=== PATIENT | male | born 1985 | race Caucasian/White ===

== ENCOUNTER 2017-04-07 16:51 | Inpatient (IN) | payer SELFPAY ==
[~2017-04-07] VITALS: Ht 180.3 cm; Wt 79.4 kg
[2017-04-07 18:15] VITALS: BP 136/90
[2017-04-07] MEDS ORDERED: ONDANSETRON PF 4 MG/2 ML VIAL. IV PRN (18:30)
[2017-04-07] MEDS ORDERED: MORPHINE SULFATE 4 MG/ML DISP.SYRIN. IV PRN ×2 (18:30→20:00)
[2017-04-07 19:54] VITALS: BP 143/88
[2017-04-07] MEDS ORDERED: VANCOMYCIN 1 GM in IV NORMAL SALINE 250ML 250 ML IV SCH (20:00)
[2017-04-07] MEDS ORDERED: oxyCODONE/APAP 10/325 1 TAB TABLET PO PRN (20:00)
[2017-04-07] MEDS: VANCOMYCIN PER PHARMACY MC PRN (20:31)
[2017-04-07] MEDS: ENOXAPARIN 40 MG/0.4 ML SYRINGE. SQ SCH (20:38)
[2017-04-07] MEDS: FAMOTIDINE 20 MG TABLET. PO SCH (20:38)
--- NOTE | 2017-04-07 22:07 | HP ---
ADMIT DATE: 04/07/2017 CHIEF COMPLAINT: Foot cellulitis. HISTORY OF PRESENT ILLNESS: The patient is a 31-year-old gentleman without any past medical history who presented to the Emergency Room 1 week after stepping into a nail. He relates that this happened at work place where he did not see a board with a nail. The nail punctured through the foot. He immediately cleaned the area and applied a triple ointment. He did not notice any erythema or swelling until yesterday. Foot is now significantly swollen and painful. He is unable to bear weight on the ball of his left foot. He denies any fevers, any chills, denies any other symptoms. He is now admitted for cellulitis, question osteomyelitis. PAST MEDICAL HISTORY: None. FAMILY HISTORY: None. SOCIAL HISTORY: Lives with his brother. Smokes a pack of cigarettes a day, smokes pot as well as meth. No IV drug use. No alcohol. ALLERGIES: No known drug allergies. MEDICATIONS: No home medications. REVIEW OF SYSTEMS: Positive as per HPI. Pain currently rated as 7/10 while lying in bed with foot propped up. Rest of organ system review is negative. PHYSICAL EXAMINATION: VITAL SIGNS: From today show a blood pressure of 136/90, heart rate at 80, respiratory rate at 18. He is afebrile. GENERAL: This is a well-nourished 31-year-old gentleman, alert and oriented, in no acute distress. HEENT: Shows no scleral icterus. NECK: Supple. Oral mucosa is pink and moist. Dentition is poor. LUNGS: Clear. HEART: Regular rate and rhythm. ABDOMEN: Has positive bowel sounds, soft, nontender. EXTREMITIES: Show erythema and edema in the dorsum of the left foot. A minuscule puncture wound is seen on the sole of his foot between third and fourth toe. No erythema or abnormalities noted there. LABORATORY DATA: Not obtained in the Emergency Room. ASSESSMENT AND PLAN: The patient is a 31-year-old gentleman with at least foot cellulitis after stepping into a sierra nail. We will admit him, start broad-spectrum antibiotics for now. Dr. Yoder from Infectious Disease as well as Dr. Rashid from Ortho have been consulted by the Emergency Room physician. We will obtain x-rays and if need be MRI of the foot as well to ascertain no osteomyelitis is present. We will obtain labs and monitor as needed. For his pain, he will have Percocets available as well as morphine for severe pain. We will start nicotine patch for his pack a day habit of cigarettes. Prophylaxis will be obtained with H2 blockers as well as Lovenox. SIVA MARI MD DR: RAJWINDER/nts JOB#: [id number] / [id number] PRATIMA
[2017-04-07] MEDS: CEFEPIME HCL 1 GM in IV NORMAL SALINE 50ML 50 ML IV SCH (22:16)
[2017-04-07 22:55] VITALS: BP 138/83
--- NOTE | 2017-04-07 23:45 | ACF ---
Admission Forms Criteria CELLULITIS Clinical Indications for Admission to Inpatient Care (Place 'X' for any and all applicable criteria): Admission is indicated for ANY ONE of the following(1)(2)(3)(4)(5): [ ]I. Limb-threatening infection [ ]II. High-risk comorbid condition as indicated by ANY ONE of the following: [ ]a) Uncontrolled diabetes (eg, HbA1c greater than 10% (0.1)) [ ]b) Cirrhosis [ ]c) Neutropenia [ ]d) Asplenia [ ]e) Immunosuppression [ ]f) Symptomatic heart failure [ ]III. Failure of outpatient therapy as indicated by ALL of the following: [ ]a) Progression or no improvement after adequate trial (minimum of 48 hours, with longer period for stable lower extremity infection) [ ]b) Adequate antibiotic regimen as indicated by use of ANY ONE of the following: [ ]i) First-generation cephalosporin (e.g., cephalexin) [ ]ii) Antistaphylococcal penicillin (e.g., dicloxacillin) [ ]iii) Penicillin-allergic patient regimen (clindamycin, extended-spectrum fluoroquinolone, or doxycycline) [ ]iv) Resistant organism (eg, methicillin-resistant Staphylococcus aureus) regimen (6) [ ]c) Outpatient intravenous therapy regimen is not appropriate due to ANY ONE of the following. (7)(8)(9)(10): [ ]i) It was tried and was not successful (eg, progression of infection). [ ]ii) It is not available or cannot be arranged in a clinically appropriate time frame (e.g., the next day). [ ]iii) Clinical presentation (eg, acuity of infection, rapidity of progression, confirmed or suspected bacteremia) is judged to require ALL of the following: [ ]1) Immediate initiation of intravenous therapy ( eg, cannot wait for next day) [ ]2) Intensity of patient monitoring and observation (eg, vital sign measurement, checks for infection progression) that cannot be provided at other than inpatient level of care [ ]IV. Mental status changes [ ]V. Bacteremia [ ]. Hemodynamic instability [ ]VII. Suspected necrotizing soft tissue infection (e.g., gas in tissue)(11)( 12) [ ]VIII. Orbital infection (13)(14) [ ]IX. Associated surgical procedure (e.g., abscess drainage, debridement) not amenable to outpatient, emergency department, or observation care [ ]X. Cutaneous gangrene [ ]XI. High fever (temperature greater than 39.5 degrees C (103.1 degrees F) (oral)) not responsive to outpatient, emergency department, or observation care therapy [X]XIII. Inpatient admission required rather than observation care (Also use Cellulitis: Observation Care as appropriate) because of ANY ONE of the following : [ ]a) Periorbital or perineal infection that is severe or worsening [ ]b) Severe pain requiring acute inpatient management [ ]c) IV fluid to replace significant ongoing (e.g., for over 24 hours) losses (greater than 3L/m2 per day) [ ]d) Compartment syndrome monitoring (17) [ ]e) Strict or protective (eg, laminar flow) isolation [ ]f) Urgent debridement or skin grafting [ ]g) Bone or joint debridement [ ]h) Immediate inpatient surgery [X]i) Other condition, treatment or monitoring requiring inpatient admission Extended stay beyond goal length of stay may be needed for (1)(18): [ ]a) Necrotizing soft tissue infection or fasciitis [ ]b) Gram-negative infection [ ]c) Methicillin-resistant Staphylococcal aureus (MRSA) infection [ ]d) Peripheral venous insufficiency with cellulitis [ ]e) Extensive edema [ ]f) Sepsis or continued Hemodynamic instability [ ]g) Continued high fever or mental status change [ ]h) Bacteremia [ ]i) Active serious comorbid conditions ( eg, heart failure, renal insufficiency) The original [employer] content created by [employer] has been revised. The portions of the content which have been revised are identified through the use of italic text or in bold, and [facility] has neither reviewed nor approved the modified material. All other unmodified content is copyright [facility] Please see references footnoted in the original [facility] [facility] edition 2016 Admission Criteria Met?: Yes DANYA ROLON Apr 07, 2017 23:44
[2017-04-07] MEDS: VANCOMYCIN 1.25 GM in IV NORMAL SALINE 250ML 250 ML IV SCH (23:58)
[2017-04-08 03:44] LABS: BASO # 0.1 x10^3/uL (0.0-0.2); BASO % 1 % (0-3); EOS % 4 % (0-3); HEMATOCRIT 39.6 % (39.0-53.0); HEMOGLOBIN 13.7 g/dL (13.0-17.5); LYMPH % 18 % (24-48); MEAN CORPUSCULAR HEMOGLOBIN 30 pg (25-35); MEAN CORPUSCULAR HGB CONC 35 g/dL (31-37); MEAN CORPUSCULAR VOLUME 87 fL (79-100); MONO % 9 % (0-9); NEUT % 68 % (31-73); PLATELET COUNT 325 x10^3/uL (140-400); RED BLOOD COUNT 4.57 x10^6/uL (4.30-5.70); RED CELL DISTRIBUTION WIDTH 12.8 % (11.5-14.5); WHITE BLOOD COUNT 10.9 x10^3/uL (4.0-11.0)
[2017-04-08 03:58] LABS: ALBUMIN 2.7 g/dL (3.4-5.0); ALBUMIN/GLOBULIN RATIO 0.8 (1.0-1.7); CALCIUM 8.4 mg/dL (8.5-10.1); CREATININE 1.2 mg/dL (0.7-1.3); GFR 69.7; POTASSIUM 3.8 mmol/L (3.5-5.1); TOTAL BILIRUBIN 0.5 mg/dL (0.2-1.0); TOTAL PROTEIN 5.9 g/dL (6.4-8.2)
[2017-04-08] MEDS: CEFEPIME HCL 1 GM in IV NORMAL SALINE 50ML 50 ML IV SCH ×3 (06:03→21:51)
--- NOTE | 2017-04-08 07:37 | RAD ---
Left foot, 2 views, 04/07/2017: History: Stepped on nail, cellulitis No fracture or dislocation is identified. No destructive bony lesion is seen. There is diffuse soft tissue swelling. No radiopaque foreign body is evident in the soft tissues. IMPRESSION: No acute bony abnormality is detected.
[2017-04-08] MEDS: VANCOMYCIN 1.25 GM in IV NORMAL SALINE 250ML 250 ML IV SCH ×3 (07:43→23:32)
[2017-04-08 07:56] VITALS: BP 132/85
--- NOTE | 2017-04-08 09:19 | RAD ---
Examination: MRI of the left forefoot without contrast HISTORY: History of a puncture wound to the left foot wound under the ball of the foot directly of the third digit, pain, redness, swelling COMPARISON: None available Technique: Multiplanar multisequence MR imaging of the left forefoot were performed without contrast FINDINGS: Examination limited due to motion artifact. The alignment of the metatarsophalangeal, phalangeal joints grossly appears unremarkable. Mild degenerative disease identified at the first metatarsophalangeal joint with tiny subchondral cystic changes. Small subchondral cystic change identified at the medial base of the third metatarsal likely degeneration. No evidence of cortical disruption identified with low T1 signal to suggest osteomyelitis. There is small amount of fluid identified in the third and fourth metatarsophalangeal joint. There is diffuse T2 signal identified in the soft tissue of the forefoot particularly about the third and fourth metatarsals and the toes in its dorsal and plantar aspect. There is increased T2 signal in the plantar muscles of the forefoot. Lisfranc ligament appears intact. Impression : 1. No MRI evidence of osteomyelitis. 2. Diffuse T2 signal identified in the soft tissue and subcutaneous region of the forefoot and the plantar muscles of the forefoot likely edema or soft tissue infection/myositis. 3. Minimal amount of joint effusion in third and fourth metatarsophalangeal joints probably reactive and less likely septic arthritis as there is no evidence of cortical disruption. Electronically signed by: Andre Smith MD (04/08/2017 9:16 AM)
[2017-04-08] MEDS: NICOTINE 21MG PATCH. TD SCH (09:43)
[2017-04-08 10:52] VITALS: BP 129/85
--- NOTE | 2017-04-08 14:26 | PDOC ---
PROGRESS NOTES Chief Complaint Chief Complaint Nail into foot History of Present Illness History of Present Illness Seen and examined VSS Consulted ID Vitals Vitals Vital Signs Date Time Temp Pulse Resp B/P (MAP) Pulse Ox O2 Delivery O2 Flow Rate FiO2 04/08/17 10:52 97.9 93 18 129/85 (100) 98 Room Air 97.9 Physical Exam General: Alert, Oriented X3, Cooperative Heart: Regular rate, Normal S1, Normal S2 Lungs: Clear Abdomen: Normal bowel sounds, Soft Extremities: No clubbing, No cyanosis, Other (+cellulitis of L foot) Skin: No breakdown Labs LABS Laboratory Tests Test 04/08/17 03:25 White Blood Count 10.9 x10^3/uL (4.0-11.0) Red Blood Count 4.57 x10^6/uL (4.30-5.70) Hemoglobin 13.7 g/dL (13.0-17.5) Hematocrit 39.6 % (39.0-53.0) Mean Corpuscular Volume 87 fL (79-100) Mean Corpuscular Hemoglobin 30 pg (25-35) Mean Corpuscular Hemoglobin Concent 35 g/dL (31-37) Red Cell Distribution Width 12.8 % (11.5-14.5) Platelet Count 325 x10^3/uL (140-400) Neutrophils (%) (Auto) 68 % (31-73) Lymphocytes (%) (Auto) 18 % (24-48) Monocytes (%) (Auto) 9 % (0-9) Eosinophils (%) (Auto) 4 % (0-3) Basophils (%) (Auto) 1 % (0-3) Neutrophils # (Auto) 7.4 x10^3uL (1.8-7.7) Lymphocytes # (Auto) 2.0 x10^3/uL (1.0-4.8) Monocytes # (Auto) 1.0 x10^3/uL (0.0-1.1) Eosinophils # (Auto) 0.5 x10^3/uL (0.0-0.7) Basophils # (Auto) 0.1 x10^3/uL (0.0-0.2) Sodium Level 141 mmol/L (136-145) Potassium Level 3.8 mmol/L (3.5-5.1) Chloride Level 107 mmol/L (98-107) Carbon Dioxide Level 29 mmol/L (21-32) Anion Gap 5 (6-14) Blood Urea Nitrogen 15 mg/dL (8-26) Creatinine 1.2 mg/dL (0.7-1.3) Estimated GFR (Cockcroft-Gault) 69.7 BUN/Creatinine Ratio 13 (6-20) Glucose Level 106 mg/dL (70-99) Calcium Level 8.4 mg/dL (8.5-10.1) Total Bilirubin 0.5 mg/dL (0.2-1.0) Aspartate Amino Transf (AST/SGOT) 11 U/L (15-37) Alanine Aminotransferase (ALT/SGPT) 13 U/L (16-63) Alkaline Phosphatase 111 U/L (46-116) Total Protein 5.9 g/dL (6.4-8.2) Albumin 2.7 g/dL (3.4-5.0) Albumin/Globulin Ratio 0.8 (1.0-1.7) Review of Systems Review of Systems co pain co weaknes Assessment and Plan Assessmemt and Plan Nail into foot Plan Consult ID Wound care Labs Home meds Narcotics IV antibx Problems: Comment Review of Relevant I have reviewed the following items jay (where applicable) has been applied. Labs Laboratory Tests Test 04/08/17 03:25 White Blood Count 10.9 x10^3/uL (4.0-11.0) Red Blood Count 4.57 x10^6/uL (4.30-5.70) Hemoglobin 13.7 g/dL (13.0-17.5) Hematocrit 39.6 % (39.0-53.0) Mean Corpuscular Volume 87 fL (79-100) Mean Corpuscular Hemoglobin 30 pg (25-35) Mean Corpuscular Hemoglobin Concent 35 g/dL (31-37) Red Cell Distribution Width 12.8 % (11.5-14.5) Platelet Count 325 x10^3/uL (140-400) Neutrophils (%) (Auto) 68 % (31-73) Lymphocytes (%) (Auto) 18 % (24-48) Monocytes (%) (Auto) 9 % (0-9) Eosinophils (%) (Auto) 4 % (0-3) Basophils (%) (Auto) 1 % (0-3) Neutrophils # (Auto) 7.4 x10^3uL (1.8-7.7) Lymphocytes # (Auto) 2.0 x10^3/uL (1.0-4.8) Monocytes # (Auto) 1.0 x10^3/uL (0.0-1.1) Eosinophils # (Auto) 0.5 x10^3/uL (0.0-0.7) Basophils # (Auto) 0.1 x10^3/uL (0.0-0.2) Sodium Level 141 mmol/L (136-145) Potassium Level 3.8 mmol/L (3.5-5.1) Chloride Level 107 mmol/L (98-107) Carbon Dioxide Level 29 mmol/L (21-32) Anion Gap 5 (6-14) Blood Urea Nitrogen 15 mg/dL (8-26) Creatinine 1.2 mg/dL (0.7-1.3) Estimated GFR (Cockcroft-Gault) 69.7 BUN/Creatinine Ratio 13 (6-20) Glucose Level 106 mg/dL (70-99) Calcium Level 8.4 mg/dL (8.5-10.1) Total Bilirubin 0.5 mg/dL (0.2-1.0) Aspartate Amino Transf (AST/SGOT) 11 U/L (15-37) Alanine Aminotransferase (ALT/SGPT) 13 U/L (16-63) Alkaline Phosphatase 111 U/L (46-116) Total Protein 5.9 g/dL (6.4-8.2) Albumin 2.7 g/dL (3.4-5.0) Albumin/Globulin Ratio 0.8 (1.0-1.7) Laboratory Tests Test 04/08/17 03:25 White Blood Count 10.9 x10^3/uL (4.0-11.0) Red Blood Count 4.57 x10^6/uL (4.30-5.70) Hemoglobin 13.7 g/dL (13.0-17.5) Hematocrit 39.6 % (39.0-53.0) Mean Corpuscular Volume 87 fL (79-100) Mean Corpuscular Hemoglobin 30 pg (25-35) Mean Corpuscular Hemoglobin Concent 35 g/dL (31-37) Red Cell Distribution Width 12.8 % (11.5-14.5) Platelet Count 325 x10^3/uL (140-400) Neutrophils (%) (Auto) 68 % (31-73) Lymphocytes (%) (Auto) 18 % (24-48) Monocytes (%) (Auto) 9 % (0-9) Eosinophils (%) (Auto) 4 % (0-3) Basophils (%) (Auto) 1 % (0-3) Neutrophils # (Auto) 7.4 x10^3uL (1.8-7.7) Lymphocytes # (Auto) 2.0 x10^3/uL (1.0-4.8) Monocytes # (Auto) 1.0 x10^3/uL (0.0-1.1) Eosinophils # (Auto) 0.5 x10^3/uL (0.0-0.7) Basophils # (Auto) 0.1 x10^3/uL (0.0-0.2) Sodium Level 141 mmol/L (136-145) Potassium Level 3.8 mmol/L (3.5-5.1) Chloride Level 107 mmol/L (98-107) Carbon Dioxide Level 29 mmol/L (21-32) Anion Gap 5 (6-14) Blood Urea Nitrogen 15 mg/dL (8-26) Creatinine 1.2 mg/dL (0.7-1.3) Estimated GFR (Cockcroft-Gault) 69.7 BUN/Creatinine Ratio 13 (6-20) Glucose Level 106 mg/dL (70-99) Calcium Level 8.4 mg/dL (8.5-10.1) Total Bilirubin 0.5 mg/dL (0.2-1.0) Aspartate Amino Transf (AST/SGOT) 11 U/L (15-37) Alanine Aminotransferase (ALT/SGPT) 13 U/L (16-63) Alkaline Phosphatase 111 U/L (46-116) Total Protein 5.9 g/dL (6.4-8.2) Albumin 2.7 g/dL (3.4-5.0) Albumin/Globulin Ratio 0.8 (1.0-1.7) Medications Current Medications Morphine Sulfate 4 mg PRN Q4HRS PRN IV PAIN; Start 04/07/17 at 18:30; Stop at 19:51; Status DC Ondansetron HCl (Zofran) 4 mg PRN Q8HRS PRN IV NAUSEA/VOMITING; Start 04/07/17 at 18:30 Morphine Sulfate 2 mg PRN Q4HRS PRN IV severe pain; Start 04/07/17 at 20:00 Oxycodone/ Acetaminophen (Percocet 10/325) 1 tab PRN Q4HRS PRN PO pain -1st choice Last administered on 04/07/17 20:37; Start 04/07/17 at 20:00 Nicotine (Nicoderm Cq 21mg) 1 patch DAILY TD Last administered on 04/08/17 09: 43; Start 04/08/17 at 09:00 Cefepime HCl 1 gm/ Sodium Chloride 50 ml @ 100 mls/hr Q8HRS IV Last administered on 04/08/17 06:03; Start 04/07/17 at 22:00 Vancomycin HCl 1 gm/Sodium Chloride 250 ml @ 250 mls/hr Q12H IV ; Start at 20:00; Status UNV Famotidine (Pepcid) 20 mg QHS PO ; Start 04/07/17 at 21:00 Enoxaparin Sodium (Lovenox 40mg Syringe) 40 mg Q24H SQ Last administered on 20:38; Start 04/07/17 at 21:00 Vancomycin HCl 1.25 gm/Sodium Chloride 250 ml @ 167 mls/hr Q8H IV Last administered on 04/08/17 07:43; Start 04/08/17 at 00:00 Vancomycin HCl 1 each 1X ONCE MC ; Start 04/08/17 at 15:30; Stop 04/08/17 at 15 :31 Vancomycin HCl (Vanco Per Pharmacy) 1 each PRN DAILY PRN MC SEE COMMENTS Last administered on 04/07/17 20:31; Start 04/07/17 at 20:45 Active Scripts Active Reported No Known Medications Prior To Admisstion (Info) Each 1 Each MC Vitals/I & O Vital Sign - Last 24 Hours 04/07/17 04/07/17 04/07/17 04/07/17 18:15 18:15 19:54 20:00 Temp 98.2 98.2 98.1 98.2 98.2 98.1 Pulse 80 80 105 Resp 18 18 18 B/P (MAP) 136/90 (105) 136/90 (105) 143/88 (106) Pulse Ox 99 99 98 O2 Delivery Room Air Room Air Room Air Room Air 04/07/17 04/08/17 04/08/17 22:55 07:56 10:52 Temp 98.7 97.9 97.9 98.7 97.9 97.9 Pulse 97 93 93 Resp 18 18 B/P (MAP) 138/83 (101) 132/85 (101) 129/85 (100) Pulse Ox 97 98 98 O2 Delivery Room Air Room Air Room Air Intake and Output 04/07/17 04/07/17 04/08/17 15:00 23:00 07:00 Intake Total 1000 ml Balance 1000 ml BETO MARTINEZ III DO Apr 08, 2017 14:26
[2017-04-08 14:53] VITALS: BP 127/86
--- NOTE | 2017-04-08 15:35 | PDOC2 ---
CONSULT Date of Consult Date of Consult DATE: 04/08/17 Identification/Chief Complaint Chief Complaint left foot pain and swelling Source Source: Chart review, Patient History of Present Illness Reason for Visit: Mr. Wick is a 31 year old male patient with left foot pain and swelling. He stepped on a nail in a board at work on 04/02/17. He did not seek treatment, but did clean the wound. Later that night his foot became red and painful and continued to get worse over the last week. He states his pain and redness is better today after beginning IV antibiotics last night. He denies any fever, chills, or feelings of being ill. He can't quite remember when his last Tetanus booster was; he thinks 2012. He states he did not receive a booster in the ER. Past Medical History Cardiovascular: No pertinent hx Past Surgical History Past Surgical History: No pertinent history Family History Family History: Diabetes Social History 1 pack per day ALCOHOL: none Drugs: Marijuana, Crystal meth (last smoked 2 days ago, has never injected) Current Medications Current Medications Current Medications Morphine Sulfate 4 mg PRN Q4HRS PRN IV PAIN; Start 04/07/17 at 18:30; Stop at 19:51; Status DC Ondansetron HCl (Zofran) 4 mg PRN Q8HRS PRN IV NAUSEA/VOMITING; Start 04/07/17 at 18:30 Morphine Sulfate 2 mg PRN Q4HRS PRN IV severe pain; Start 04/07/17 at 20:00 Oxycodone/ Acetaminophen (Percocet 10/325) 1 tab PRN Q4HRS PRN PO pain -1st choice Last administered on 04/07/17 20:37; Start 04/07/17 at 20:00 Nicotine (Nicoderm Cq 21mg) 1 patch DAILY TD Last administered on 04/08/17 09: 43; Start 04/08/17 at 09:00 Cefepime HCl 1 gm/ Sodium Chloride 50 ml @ 100 mls/hr Q8HRS IV Last administered on 04/08/17 06:03; Start 04/07/17 at 22:00 Vancomycin HCl 1 gm/Sodium Chloride 250 ml @ 250 mls/hr Q12H IV ; Start at 20:00; Status UNV Famotidine (Pepcid) 20 mg QHS PO ; Start 04/07/17 at 21:00 Enoxaparin Sodium (Lovenox 40mg Syringe) 40 mg Q24H SQ Last administered on 20:38; Start 04/07/17 at 21:00 Vancomycin HCl 1.25 gm/Sodium Chloride 250 ml @ 167 mls/hr Q8H IV Last administered on 04/08/17 07:43; Start 04/08/17 at 00:00 Vancomycin HCl 1 each 1X ONCE MC ; Start 04/08/17 at 15:30; Stop 04/08/17 at 15 :31 Vancomycin HCl (Vanco Per Pharmacy) 1 each PRN DAILY PRN MC SEE COMMENTS Last administered on 04/07/17 20:31; Start 04/07/17 at 20:45 Active Scripts Active Reported No Known Medications Prior To Admisstion (Info) Each 1 Each MC Allergies Allergies: Coded Allergies: No Known Drug Allergies (Unverified , 04/07/17) ROS General: No: Chills, Night Sweats, Fatigue Eyes: Yes Decreased vision HEENT: No: Heacaches, Visual Changes, Sore Throat ALLERGY AND IMMUNOLOGY: No: Nasal Congestion Hematological and Lymphatic: No: Bleeding Problems, Blood Clots Respiratory: No: Cough, Shortness of breath Cardiovascular: No Chest Pain Gastrointestinal: No Nausea, No Vomiting, No Abdominal Pain, No Diarrhea, No Constipation Genitourinary: No Dysuria, No Frequency, No Incontinence Musculoskeletal: Yes Joint Pain Physical Exam General: Alert, Oriented X3, Cooperative, No acute distress HEENT: Atraumatic, EOMI Lungs: Normal air movement Heart: Regular rate Abdomen: Soft Extremities: No clubbing, No cyanosis, Normal pulses, Other (1+ pitting edema over dorsum of foot) Skin: No rashes, No breakdown, Other (small puncture wound on plantar aspect of left foot. No drainage) Neuro: Normal speech, Sensation intact Psych/Mental Status: Mental status NL, Mood NL MUSCULOSKELETAL: Other (Small puncture wound to bottom of foot, as described above. No drainage. No obvious abscess or area of fluctuance. There is erythema covering dorsum of foot up to ankle. Mild tenderness to palpation at base of third toe, over 3rd MCP joint. No tenderness to remaining toes. Normal active dorsiflexion and plantarflexion. Passive range of motion of third toe is mildly painful. Posterior tibialis and dorsalis pedis pulse intact. Light touch sensation intact throughout. Neurovasulcarly intact distally.) Vitals VITALS Vital Signs Date Time Temp Pulse Resp B/P (MAP) Pulse Ox O2 Delivery O2 Flow Rate FiO2 04/08/17 14:53 97.3 98 18 127/86 (100) 100 Room Air 97.3 Labs Labs Laboratory Tests Test 04/08/17 03:25 White Blood Count 10.9 x10^3/uL (4.0-11.0) Red Blood Count 4.57 x10^6/uL (4.30-5.70) Hemoglobin 13.7 g/dL (13.0-17.5) Hematocrit 39.6 % (39.0-53.0) Mean Corpuscular Volume 87 fL (79-100) Mean Corpuscular Hemoglobin 30 pg (25-35) Mean Corpuscular Hemoglobin Concent 35 g/dL (31-37) Red Cell Distribution Width 12.8 % (11.5-14.5) Platelet Count 325 x10^3/uL (140-400) Neutrophils (%) (Auto) 68 % (31-73) Lymphocytes (%) (Auto) 18 % (24-48) Monocytes (%) (Auto) 9 % (0-9) Eosinophils (%) (Auto) 4 % (0-3) Basophils (%) (Auto) 1 % (0-3) Neutrophils # (Auto) 7.4 x10^3uL (1.8-7.7) Lymphocytes # (Auto) 2.0 x10^3/uL (1.0-4.8) Monocytes # (Auto) 1.0 x10^3/uL (0.0-1.1) Eosinophils # (Auto) 0.5 x10^3/uL (0.0-0.7) Basophils # (Auto) 0.1 x10^3/uL (0.0-0.2) Sodium Level 141 mmol/L (136-145) Potassium Level 3.8 mmol/L (3.5-5.1) Chloride Level 107 mmol/L (98-107) Carbon Dioxide Level 29 mmol/L (21-32) Anion Gap 5 (6-14) Blood Urea Nitrogen 15 mg/dL (8-26) Creatinine 1.2 mg/dL (0.7-1.3) Estimated GFR (Cockcroft-Gault) 69.7 BUN/Creatinine Ratio 13 (6-20) Glucose Level 106 mg/dL (70-99) Calcium Level 8.4 mg/dL (8.5-10.1) Total Bilirubin 0.5 mg/dL (0.2-1.0) Aspartate Amino Transf (AST/SGOT) 11 U/L (15-37) Alanine Aminotransferase (ALT/SGPT) 13 U/L (16-63) Alkaline Phosphatase 111 U/L (46-116) Total Protein 5.9 g/dL (6.4-8.2) Albumin 2.7 g/dL (3.4-5.0) Albumin/Globulin Ratio 0.8 (1.0-1.7) Laboratory Tests Test 04/08/17 03:25 White Blood Count 10.9 x10^3/uL (4.0-11.0) Red Blood Count 4.57 x10^6/uL (4.30-5.70) Hemoglobin 13.7 g/dL (13.0-17.5) Hematocrit 39.6 % (39.0-53.0) Mean Corpuscular Volume 87 fL (79-100) Mean Corpuscular Hemoglobin 30 pg (25-35) Mean Corpuscular Hemoglobin Concent 35 g/dL (31-37) Red Cell Distribution Width 12.8 % (11.5-14.5) Platelet Count 325 x10^3/uL (140-400) Neutrophils (%) (Auto) 68 % (31-73) Lymphocytes (%) (Auto) 18 % (24-48) Monocytes (%) (Auto) 9 % (0-9) Eosinophils (%) (Auto) 4 % (0-3) Basophils (%) (Auto) 1 % (0-3) Neutrophils # (Auto) 7.4 x10^3uL (1.8-7.7) Lymphocytes # (Auto) 2.0 x10^3/uL (1.0-4.8) Monocytes # (Auto) 1.0 x10^3/uL (0.0-1.1) Eosinophils # (Auto) 0.5 x10^3/uL (0.0-0.7) Basophils # (Auto) 0.1 x10^3/uL (0.0-0.2) Sodium Level 141 mmol/L (136-145) Potassium Level 3.8 mmol/L (3.5-5.1) Chloride Level 107 mmol/L (98-107) Carbon Dioxide Level 29 mmol/L (21-32) Anion Gap 5 (6-14) Blood Urea Nitrogen 15 mg/dL (8-26) Creatinine 1.2 mg/dL (0.7-1.3) Estimated GFR (Cockcroft-Gault) 69.7 BUN/Creatinine Ratio 13 (6-20) Glucose Level 106 mg/dL (70-99) Calcium Level 8.4 mg/dL (8.5-10.1) Total Bilirubin 0.5 mg/dL (0.2-1.0) Aspartate Amino Transf (AST/SGOT) 11 U/L (15-37) Alanine Aminotransferase (ALT/SGPT) 13 U/L (16-63) Alkaline Phosphatase 111 U/L (46-116) Total Protein 5.9 g/dL (6.4-8.2) Albumin 2.7 g/dL (3.4-5.0) Albumin/Globulin Ratio 0.8 (1.0-1.7) Images Images Left foot x-rays and MRI were reviewed. No evidence of osteomyelitis. No fluid collection seen. Minimal joint effusion at third and fourth MCP joints, likely reactive. Assessment/Plan Assessment/Plan Left foot cellulitis. MRI does not show fluid collection or evidence of osteomyelitis. Continue IV antibiotics. No surgical intervention necessary. MARIETTA SERVIN Apr 08, 2017 15:35
[2017-04-08] MEDS: VANCOMYCIN PER PHARMACY MC PRN (16:15)
[2017-04-08 19:42] VITALS: BP 144/89
[2017-04-08] MEDS ORDERED: TETANUS AND DIPHTHERIA TOX/PF 0.5 ML DISP.SYRIN. VAX IM ONE (20:00)
[2017-04-08] MEDS: ENOXAPARIN 40 MG/0.4 ML SYRINGE. SQ SCH (21:50)
[2017-04-08] MEDS: FAMOTIDINE 20 MG TABLET. PO SCH (21:50)
[2017-04-08 23:12] VITALS: BP 141/84
--- NOTE | 2017-04-09 01:37 | CONS ---
DATE OF CONSULTATION: 04/08/2017 REQUESTING PHYSICIAN: Dr. Cuevas. REASON FOR CONSULTATION: Foot cellulitis. HISTORY OF PRESENT ILLNESS: This is a 31-year-old gentleman who stepped on a nail at work a week ago. The patient started developing later on swelling and the nail went through and through the shoe. The patient ____ getting swelling and redness. Hence, he decided to come in. The patient denies any nausea, vomiting, diarrhea. Denies any chest pain, shortness of breath. Denies any fever. The patient has been started on cefepime and vancomycin and consult has been requested. PAST MEDICAL HISTORY: Unremarkable. SOCIAL HISTORY: Positive for smoking. ALLERGIES: No known drug allergies. CURRENT MEDICATIONS: Reviewed. REVIEW OF SYSTEMS: As per HPI. PHYSICAL EXAMINATION: GENERAL: Alert, oriented gentleman, not in distress. VITAL SIGNS: Stable, afebrile. HEENT: Anicteric. NECK: Supple. No JVP, no lymphadenopathy. LUNGS: Clear. CARDIOVASCULAR: S1, S2 regular. ABDOMEN: Benign. EXTREMITIES: Left foot is swollen, red, puncture wound on the plantar surface. There is no drainage from that. Rest of the skin examination is unremarkable. NEUROLOGIC: The patient is neurologically intact. LABORATORY DATA: White count is 10.9. BUN and creatinine is normal. Foot x-ray was unremarkable and the foot MRI is not showing any osteomyelitis. There is some fluid around the joint seen, significant edema seen. IMPRESSION: 1. Puncture wound to the left foot with nail injury through and through the shoes, really concerning for pseudomonas infection. 2. Left foot cellulitis. RECOMMENDATIONS: Agree with cefepime and vancomycin, leg elevation, supportive care and unfortunately the ____ material is concerning, may need I and D by Ortho, Ortho opinion is pending. Thank you very much, Dr. Cuevas, for giving me the opportunity to participate in this patient's care. CHETAN VAIL MD DR: ERVIN/andree JOB#: [id number] / [id number]
[2017-04-09] MEDS: CEFEPIME HCL 1 GM in IV NORMAL SALINE 50ML 50 ML IV SCH ×3 (06:10→20:37)
[2017-04-09 07:08] VITALS: BP 118/73
[2017-04-09] MEDS: VANCOMYCIN 1.25 GM in IV NORMAL SALINE 250ML 250 ML IV SCH ×2 (08:07→16:07)
[2017-04-09] MEDS: NICOTINE 21MG PATCH. TD SCH (08:11)
--- NOTE | 2017-04-09 10:12 | PDOC ---
Infectious Disease Note Subjective Subjective no change ROS ROS GEN: Denies fevers, chills, sweats HEENT: Denies blurred vision, sore throat CV: Denies chest pain RESP: Denies shortness of air, cough GI: Denies n/v/d NEURO: Denies confusion, dizzines Vital Sign Vital Signs Vital Signs Date Time Temp Pulse Resp B/P (MAP) Pulse Ox O2 Delivery O2 Flow Rate FiO2 04/09/17 08:00 Room Air 04/09/17 07:08 97.8 85 19 118/73 (88) 98 97.8 Physical Exam PHYSICAL EXAM GENERAL: NAD, Alert HEENT: PERRL, OC/OP NECK: Supple, no JVD, no LN LUNGS: Clear HEART: S1S2, no gallop, no murmur ABD: Soft, NT, no organomegaly, no rebound EXT: No edema, no cyanosis 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 Puncture wound to the left foot with nail injury through and through the shoes, really concerning for pseudomonas infection. 2. Left foot cellulitis. Plan Plan of Care cont antibiotics, if not better, then may need I and CHETAN PANDEY MD Apr 09, 2017 10:12
[2017-04-09 10:49] VITALS: BP 132/76
--- NOTE | 2017-04-09 12:57 | PDOC ---
PROGRESS NOTES Subjective Subjective Doing about the same today. Is able to weightbearing on LLE. Objective Vital Signs Vital Signs Date Time Temp Pulse Resp B/P (MAP) Pulse Ox O2 Delivery O2 Flow Rate FiO2 04/09/17 10:49 98.6 86 17 132/76 (94) 100 Room Air 98.6 Physical Exam Left foot remains swollen. Erythema has improved slightly. Normal active dorsiflexion and plantarflexion. Can wiggle toes with prompting, mild pain at third MCP. Distally neurovascularly intact. Labs Laboratory Tests Test 04/08/17 03:25 04/08/17 15:00 White Blood Count 10.9 x10^3/uL (4.0-11.0) Red Blood Count 4.57 x10^6/uL (4.30-5.70) Hemoglobin 13.7 g/dL (13.0-17.5) Hematocrit 39.6 % (39.0-53.0) Mean Corpuscular Volume 87 fL (79-100) Mean Corpuscular Hemoglobin 30 pg (25-35) Mean Corpuscular Hemoglobin Concent 35 g/dL (31-37) Red Cell Distribution Width 12.8 % (11.5-14.5) Platelet Count 325 x10^3/uL (140-400) Neutrophils (%) (Auto) 68 % (31-73) Lymphocytes (%) (Auto) 18 % (24-48) Monocytes (%) (Auto) 9 % (0-9) Eosinophils (%) (Auto) 4 % (0-3) Basophils (%) (Auto) 1 % (0-3) Neutrophils # (Auto) 7.4 x10^3uL (1.8-7.7) Lymphocytes # (Auto) 2.0 x10^3/uL (1.0-4.8) Monocytes # (Auto) 1.0 x10^3/uL (0.0-1.1) Eosinophils # (Auto) 0.5 x10^3/uL (0.0-0.7) Basophils # (Auto) 0.1 x10^3/uL (0.0-0.2) Sodium Level 141 mmol/L (136-145) Potassium Level 3.8 mmol/L (3.5-5.1) Chloride Level 107 mmol/L (98-107) Carbon Dioxide Level 29 mmol/L (21-32) Anion Gap 5 (6-14) Blood Urea Nitrogen 15 mg/dL (8-26) Creatinine 1.2 mg/dL (0.7-1.3) Estimated GFR (Cockcroft-Gault) 69.7 BUN/Creatinine Ratio 13 (6-20) Glucose Level 106 mg/dL (70-99) Calcium Level 8.4 mg/dL (8.5-10.1) Total Bilirubin 0.5 mg/dL (0.2-1.0) Aspartate Amino Transf (AST/SGOT) 11 U/L (15-37) Alanine Aminotransferase (ALT/SGPT) 13 U/L (16-63) Alkaline Phosphatase 111 U/L (46-116) Total Protein 5.9 g/dL (6.4-8.2) Albumin 2.7 g/dL (3.4-5.0) Albumin/Globulin Ratio 0.8 (1.0-1.7) Vancomycin Level Trough 16.8 mcg/mL (10.0-20.0) Vancomycin Last Dose Date 04/08/17 Vancomycin Last Dose Time 0800 Laboratory Tests Test 04/08/17 15:00 Vancomycin Level Trough 16.8 mcg/mL (10.0-20.0) Vancomycin Last Dose Date 04/08/17 Vancomycin Last Dose Time 0800 Assessment Assessment Left foot cellulitis Problems: Plan Plan of Care Continue antibiotics. There is no fluid collection seen on MRI and no fluctuance palpated, so no surgery necessary at this time. MARIETTA SERVIN Apr 09, 2017 12:57
[2017-04-09 14:56] VITALS: BP 143/78
[2017-04-09 19:10] VITALS: BP 134/74
[2017-04-09] MEDS: FAMOTIDINE 20 MG TABLET. PO SCH (20:37)
[2017-04-09] MEDS: ENOXAPARIN 40 MG/0.4 ML SYRINGE. SQ SCH (20:39)
[2017-04-09 23:15] VITALS: BP 137/90
[2017-04-10] MEDS: VANCOMYCIN 1.25 GM in IV NORMAL SALINE 250ML 250 ML IV SCH ×3 (00:04→16:51)
[2017-04-10 03:15] VITALS: BP 141/81
[2017-04-10] MEDS: CEFEPIME HCL 1 GM in IV NORMAL SALINE 50ML 50 ML IV SCH ×3 (06:17→21:03)
[2017-04-10 07:34] VITALS: BP 136/87
[2017-04-10] MEDS: NICOTINE 21MG PATCH. TD SCH (08:29)
--- NOTE | 2017-04-10 09:27 | PDOC ---
PROGRESS NOTES Chief Complaint Chief Complaint Nail into foot Cellulits History of Present Illness History of Present Illness Seen and examined VSS Ortho and ID following Foot looks slightly better Vitals Vitals Vital Signs Date Time Temp Pulse Resp B/P (MAP) Pulse Ox O2 Delivery O2 Flow Rate FiO2 04/10/17 07:34 97.9 89 18 136/87 (103) 99 Room Air 97.9 Physical Exam General: Alert, Oriented X3, Cooperative, No acute distress Heart: Regular rate Lungs: Clear Abdomen: Normal bowel sounds, Soft Extremities: No clubbing, No cyanosis, Normal pulses, Other (1+ pitting edema over dorsum of foot) Skin: No rashes, No breakdown, Other (small puncture wound on plantar aspect of left foot. No drainage) Review of Systems Review of Systems co pain co weak Assessment and Plan Assessmemt and Plan Nail into foot Cellulits Plan IV Cefepime and Vanco Ortho considering I&D PTOT Narcotics Home meds Labs Problems: Comment Review of Relevant I have reviewed the following items jay (where applicable) has been applied. Labs Laboratory Tests Test 04/08/17 15:00 Vancomycin Level Trough 16.8 mcg/mL (10.0-20.0) Vancomycin Last Dose Date 04/08/17 Vancomycin Last Dose Time 0800 Medications Current Medications Morphine Sulfate 4 mg PRN Q4HRS PRN IV PAIN; Start 04/07/17 at 18:30; Stop at 19:51; Status DC Ondansetron HCl (Zofran) 4 mg PRN Q8HRS PRN IV NAUSEA/VOMITING; Start 04/07/17 at 18:30 Morphine Sulfate 2 mg PRN Q4HRS PRN IV severe pain; Start 04/07/17 at 20:00 Oxycodone/ Acetaminophen (Percocet 10/325) 1 tab PRN Q4HRS PRN PO pain -1st choice Last administered on 04/07/17 20:37; Start 04/07/17 at 20:00 Nicotine (Nicoderm Cq 21mg) 1 patch DAILY TD Last administered on 04/08/17 09: 43; Start 04/08/17 at 09:00 Cefepime HCl 1 gm/ Sodium Chloride 50 ml @ 100 mls/hr Q8HRS IV Last administered on 04/10/17 06:17; Start 04/07/17 at 22:00 Vancomycin HCl 1 gm/Sodium Chloride 250 ml @ 250 mls/hr Q12H IV ; Start at 20:00; Status UNV Famotidine (Pepcid) 20 mg QHS PO Last administered on 04/09/17 20:37; Start at 21:00 Enoxaparin Sodium (Lovenox 40mg Syringe) 40 mg Q24H SQ Last administered on 20:39; Start 04/07/17 at 21:00 Vancomycin HCl 1.25 gm/Sodium Chloride 250 ml @ 167 mls/hr Q8H IV Last administered on 04/10/17 08:30; Start 04/08/17 at 00:00 Vancomycin HCl 1 each 1X ONCE MC Last administered on 04/08/17 15:30; Start 04/08/17 at 15:30; Stop 04/08/17 at 15:31; Status DC Vancomycin HCl (Vanco Per Pharmacy) 1 each PRN DAILY PRN MC SEE COMMENTS Last administered on 04/08/17 16:15; Start 04/07/17 at 20:45 Tetanus/ Diphtheria Toxoids (Tenivac Syringe) 0.5 ml ONCE ONCE VAX IM Last administered on 04/08/17 21:53; Start 04/08/17 at 20:00; Stop 04/08/17 at 20:01 ; Status DC Active Scripts Active Reported No Known Medications Prior To Admisstion (Info) Each 1 Each Vitals/I & O Vital Sign - Last 24 Hours 04/09/17 04/09/17 04/09/17 04/09/17 10:49 14:56 19:10 20:00 Temp 98.6 98.3 97.8 98.6 98.3 97.8 Pulse 86 94 84 Resp 17 17 18 B/P (MAP) 132/76 (94) 143/78 (99) 134/74 (94) Pulse Ox 100 100 100 O2 Delivery Room Air Room Air Room Air Room Air 04/09/17 04/10/17 04/10/17 04/10/17 23:15 03:15 07:15 07:34 Temp 98.2 98.2 97.9 98.2 98.2 97.9 Pulse 92 81 89 Resp 18 18 18 B/P (MAP) 137/90 (106) 141/81 (101) 136/87 (103) Pulse Ox 100 100 99 O2 Delivery Room Air Room Air Room Air Room Air Intake and Output 04/09/17 04/09/17 04/10/17 15:00 23:00 07:00 Intake Total 1200 ml 900 ml Balance 1200 ml 900 ml BETO MARTINEZ III DO Apr 10, 2017 09:27
[2017-04-10 11:05] VITALS: BP 140/77
[2017-04-10] MEDS: VANCOMYCIN PER PHARMACY MC PRN (11:39)
--- NOTE | 2017-04-10 11:56 | PDOC ---
Infectious Disease Note Subjective Subjective Feels left foot is looking better: less painful, swollen and red. Ambulating w/o difficulty ROS ROS GEN: Denies fevers, chills, sweats CV: Denies chest pain RESP: Denies shortness of air, cough GI: Denies n/v/d Vital Sign Vital Signs Vital Signs Date Time Temp Pulse Resp B/P (MAP) Pulse Ox O2 Delivery O2 Flow Rate FiO2 04/10/17 11:05 98.1 97 18 140/77 (98) 100 Room Air 98.1 Physical Exam PHYSICAL EXAM GENERAL: Prpped up in bed, NAD HEENT: OC/OP clear NECK: Supple LUNGS: Clear HEART: S1S2, no gallop, no murmur ABD: Soft, NT, BS active EXT: No cyanosis. left foot edematous, mild erythema, minimal warmth TECHNICAL AID: Alert, oriented x 3, no focal neurologic deficit SKIN: No rash IV: ok Objective Assessment Puncture wound to the left foot with nail injury through and through the shoes, really concerning for pseudomonas infection. Left foot cellulitis. Plan Plan of Care Vanc and cefepime. Hope to change to po 04/11 for d/c No surgical plans noted Attending Co-Sign Attending Co-Sign The patient was seen and interviewed as well as examined at the bedside. The chart was reviewed. The case was discussed. Agree with the plan of care. SONIA ARREOLA APRN Apr 10, 2017 11:56 MIKEY VALDEZ MD Apr 10, 2017 14:53
[2017-04-10 15:03] VITALS: BP 142/86
[2017-04-10 19:00] VITALS: BP 159/97
[2017-04-10] MEDS: FAMOTIDINE 20 MG TABLET. PO SCH (21:02)
[2017-04-10] MEDS: ENOXAPARIN 40 MG/0.4 ML SYRINGE. SQ SCH (21:03)
[2017-04-10 23:00] VITALS: BP 145/90
[2017-04-11] MEDS: VANCOMYCIN 1.25 GM in IV NORMAL SALINE 250ML 250 ML IV SCH ×2 (01:03→08:42)
[2017-04-11 03:00] VITALS: BP 158/93
[2017-04-11] MEDS: CEFEPIME HCL 1 GM in IV NORMAL SALINE 50ML 50 ML IV SCH (06:19)
[2017-04-11 07:00] VITALS: BP 139/88
[2017-04-11 07:45] VITALS: BP 139/88
[2017-04-11] MEDS: NICOTINE 21MG PATCH. TD SCH (08:40)
[2017-04-11 10:56] VITALS: BP 142/92
[2017-04-11] MEDS ORDERED: AMOX1TAB61 PO (11:25)
[2017-04-11] MEDS ORDERED: AMOX1TAB10 PO (11:26)
--- NOTE | 2017-04-11 14:37 | DS ---
DATE OF DISCHARGE: 04/11/2017 ADMISSION DIAGNOSES: Stepped on nail with left foot and cellulitis. DISCHARGE DIAGNOSIS: Resolving cellulitis. HOSPITAL COURSE: The patient is a pleasant 31-year-old male who stepped on a nail. He was admitted. We gave him IV antibiotics. We consulted Infectious Disease and Ortho. He did not require surgery. His symptoms are better. PHYSICAL EXAMINATION: He was seen and examined this morning. CARDIOVASCULAR: His heart tones were normal. LUNGS: Clear. ABDOMEN: Soft. EXTREMITIES: The left foot is healing. ENDOCRINE: No thyromegaly. We planned to discharge. DISPOSITION: Home. ACTIVITY: As tolerated. DIET: Low sodium. MEDICATIONS: Please see the MRAD. TOTAL TIME ON DISCHARGE: 35 minutes. BETO MARTINEZ DO DR: RAUL/andree JOB#: [id number] / [id number]
== END 2017-04-11 11:35 | disposition home or self-care (01) | DRG 602 ==
LOC: 6 SOUTH 18:26
PROVIDERS: ADMIT Internal Medicine Hematology & Oncology; ATTEND Internal Medicine Hematology & Oncology
DX: L03.116 Cellulitis of left lower limb (principal); E43 Unspecified severe protein-calorie malnutrition; F17.210 Nicotine dependence, cigarettes, uncomplicated; F12.90 Cannabis use, unspecified, uncomplicated; S91.332A Puncture wound without foreign body, left foot, initial encounter; X58.XXXA Exposure to other specified factors, initial encounter; Z83.3 Family history of diabetes mellitus; Y93.89 Activity, other specified; Y92.89 Other specified places as the place of occurrence of the external cause; Y99.8 Other external cause status; W45.0XXA Nail entering through skin, initial encounter
CPT/HCPCS: 36415; 73620; 73718; 80053; 80202; 85027; 90714; J0692; J1650; J3370; J7050; J7030